=== PATIENT | male | born 1995 | race American Indian/Alaskan Native ===

== ENCOUNTER 2020-03-04 18:53 | Emergency (ER) | payer SELFPAY ==
[2020-03-04] MEDS ORDERED: DIPHtheria,PERTUSSIS(ACELL),TETANUS VACCINE/PF 0.5 ML VIAL IM ONE (20:01)
--- NOTE | 2020-03-04 20:01 | Event Note ---
ED Screening Note ED Screening Note: had a tattoo to the left side of the face a few months states he cut off the tattoo with a knife tonight denies any ETOH or drug use no SI or HI tdap: unsure pmhx none no allergies to meds This initial assessment/diagnostic orders/clinical plan/treatment(s) is/are subject to change based on patients health status, clinical progression and re- assessment by fellow clinical providers in the ED. Further treatment and workup at subsequent clinical providers discretion. Patient/guardian urged not to elope from the ED as their condition may be serious if not clinically assessed and managed. Initial orders include: ACC eval tdap
--- NOTE | 2020-03-04 21:43 | Emergency Department Report ---
ED General Adult HPI - General Chief complaint: Wound/Laceration Stated complaint: EAR LACERATION Time Seen by Provider: 03/04/20 19:57 Source: patient Mode of arrival: Ambulatory Limitations: No Limitations - History of Present Illness Initial comments: 25-year-old -[place] male patient presents with laceration to the left side of his face today. Patient states the laceration was self-inflicted and reports he was trying to cut a tattoo off his face. Patient states "I just did not want to tattoo on my face anymore". He states he received a tattoo about 3 months ago. He denies any drug use, SI/HI, or auditory/visual hallucinations. Patient states he is otherwise feeling well. No past mental health history per patient. He is unsure of his last tetanus vaccination. - Related Data Previous Rx's Medication Instructions Recorded Last Taken Type Ibuprofen [Motrin 800 MG tab] 800 mg PO Q8HR PRN 15 Days #14 03/04/20 Unknown Rx tablet Sulfamethoxazole/Trimethoprim 1 each PO BID 7 Days #14 tablet 03/04/20 Unknown Rx [Bactrim DS TAB] Allergies Allergy/AdvReac Type Severity Reaction Status Date / Time No Known Allergies Allergy Unverified 01/06/18 09:31 ED Review of Systems ROS: Stated complaint: EAR LACERATION Other details as noted in HPI Constitutional: denies: chills, fever, malaise Respiratory: denies: cough, shortness of breath Cardiovascular: denies: chest pain Gastrointestinal: denies: abdominal pain, nausea, vomiting Skin: as per HPI Neurological: denies: headache, paresthesias, confusion Psychiatric: denies: anxiety, depression, auditory hallucinations, visual hallucinations, suicidal thoughts ED Past Medical Hx - Past Medical History Previous Medical History?: No - Surgical History Past Surgical History?: No - Social History Smoking Status: Current Every Day Smoker Substance Use Type: None - Medications Home Medications: Home Medications Medication Instructions Recorded Confirmed Last Taken Type Ibuprofen [Motrin 800 MG tab] 800 mg PO Q8HR PRN 15 Days #14 03/04/20 Unknown Rx tablet Sulfamethoxazole/Trimethoprim 1 each PO BID 7 Days #14 tablet 03/04/20 Unknown Rx [Bactrim DS TAB] ED Physical Exam - General Limitations: No Limitations General appearance: alert, in no apparent distress - Head Head exam: Present: normocephalic - Eye Eye exam: Present: normal appearance. Absent: scleral icterus - Respiratory Respiratory exam: Present: normal lung sounds bilaterally. Absent: respiratory distress - Cardiovascular Cardiovascular Exam: Present: regular rate, normal rhythm - GI/Abdominal GI/Abdominal exam: Present: soft. Absent: tenderness - Neurological Exam Neurological exam: Present: alert, oriented X3 - Psychiatric Psychiatric exam: Present: normal affect, flat affect. Absent: depressed, agitated, manic, homicidal ideation, suicidal ideation - Skin Skin exam: Present: warm, dry, normal color. Absent: intact (Approximately 7 cm jagged laceration noted to the left side of face with minimal active bleeding; no obvious foreign bodies noted; no surrounding erythema or drainage noted), rash ED Course Vital Signs 03/04/20 03/04/20 03/04/20 19:52 21:37 22:16 Temperature 100.1 F H 99.5 F Pulse Rate 121 H 86 Respiratory 18 17 17 Rate Blood Pressure 145/77 Blood Pressure 121/73 [Left] O2 Sat by Pulse 97 99 Oximetry - Laceration /Wound Repair Left Face Wound Location: face Wound Length (cm): 7 Wound's Depth, Shape: linear Wound Explored: clean Irrigated w/ Saline (ccs): 40 Betadine Prep?: Yes Anesthesia: 1% Lidocaine Volume Anesthetic (ccs): 10 Wound Repaired With: sutures Suture Size/Type: 6:0, proline Number of Sutures: 28 (Continuous) Sterile Dressing Applied?: No Progress: Minimal bleeding occurred. Patient tolerated procedure well without any immediate complications. ED Medical Decision Making - Medical Decision Making 25-year-old -[place] male patient presents with laceration to the left side of his face today. Patient states the laceration was self-inflicted and reports he was trying to cut a tattoo off his face. He states he remove the tattoo with a patient states "I just did not want to tattoo on my face anymore". Patient states he removed the tattoo using a hair clipper. He states he received a tattoo about 3 months ago. He denies any drug use, SI/HI, or auditory/visual hallucinations. Patient states he is otherwise feeling well. No past mental health history per patient. He is unsure of his last tetanus vaccination. Laceration repair without any immediate complications. Tetanus vaccine updated. Patient instructed to return to ED in 10 days for suture removal. Discussed wound care and strict return precautions in detail with patient who verbalizes understanding. Patient states he is unable to afford prophylactic antibiotics therefore Bactrim was prescribed due to it being free at [facility]. Critical care attestation.: If time is entered above; I have spent that time in minutes in the direct care of this critically ill patient, excluding procedure time. ED Disposition Clinical Impression: Laceration of face Qualifiers: Encounter type: initial encounter Qualified Code(s): S01.81XA - Laceration without foreign body of other part of head, initial encounter Disposition: DC- TO HOME OR SELFCARE Is pt being admited?: No Condition: Stable Instructions: Sutured Wound Care, [id number] Additional Instructions: Return to the emergency department in 10 days on 03/14/2020 for suture removal. Prescriptions: Sulfamethoxazole/Trimethoprim [Bactrim DS TAB] 1 each PO BID 7 Days #14 tablet Ibuprofen [Motrin 800 MG tab] 800 mg PO Q8HR PRN 15 Days #14 tablet PRN Reason: pain Referrals: PRIMARY CARE, [Primary Care Provider] - 3-5 Days
[2020-03-04 22:19] VITALS: BP 121/73
== END 2020-03-04 22:15 | disposition home or self-care (01) ==
LOC: ED 18:53
DX: S01.81XA Laceration without foreign body of other part of head, initial encounter (principal); F17.200 Nicotine dependence, unspecified, uncomplicated; Z79.899 Other long term (current) drug therapy; W45.8XXA Other foreign body or object entering through skin, initial encounter; Y93.89 Activity, other specified; Y92.89 Other specified places as the place of occurrence of the external cause; Y99.8 Other external cause status
CPT/HCPCS: 90471; 90715

== ENCOUNTER 2020-03-14 13:33 | Emergency (ER) | payer SELFPAY ==
[2020-03-14 14:29] VITALS: BP 115/72
--- NOTE | 2020-03-14 14:58 | Emergency Department Report ---
Suture/Staple Removal - [facility] Chief Complaint: Laceration/Recheck/Suture Stated Complaint: LFT EAR STITCHS REMOVED Time Seen by Provider: 03/14/20 14:30 When Sutures or Hubert Placed: 8-10 Days Ago Wound Location: Laceration to left side of face in the preauricular region linear 6-0 Prole ED Review of Systems ROS: Stated complaint: LFT EAR STITCHS REMOVED Other details as noted in HPI Comment: All other systems reviewed and negative ED Past Medical Hx - Past Medical History Previous Medical History?: No - Surgical History Past Surgical History?: No - Social History Smoking Status: Current Every Day Smoker Substance Use Type: None - Medications Home Medications: Home Medications Medication Instructions Recorded Confirmed Last Taken Type Ibuprofen [Motrin 800 MG tab] 800 mg PO Q8HR PRN 15 Days #14 03/04/20 Unknown Rx tablet Sulfamethoxazole/Trimethoprim 1 each PO BID 7 Days #14 tablet 03/04/20 Unknown Rx [Bactrim DS TAB] Suture Removal Exam - Exam General: Vital signs noted. No distress. Alert and acting appropriately. Wound: No Pathologic Erythema, No Tenderness, No Drainage, No Pus, No Wound Dehiscence Other Systems: All other systems reviewed and are unremarkable. Excessive scabbing there is overgrowing the sutures with partial skin overgrowth to the 6-0 Prolene as well and about 4-5 areas. ED Course Vital Signs 03/14/20 14:29 Temperature 97.5 F L Pulse Rate 63 Respiratory 18 Rate Blood Pressure 115/72 [Right] O2 Sat by Pulse 100 Oximetry - Procedure Description Procedures done: Continue stitch was removed scab was removed skin was partially reopened so sutures could be removed as well the sutures were removed in their entirety with no significant complications no significant wound dehiscence Critical care attestation.: If time is entered above; I have spent that time in minutes in the direct care of this critically ill patient, excluding procedure time. ED Disposition Clinical Impression: Laceration of face Disposition: DC-01 TO HOME OR SELFCARE Is pt being admited?: No Does the pt Need Aspirin: No Condition: Stable Instructions: Laceration Care, Adult, Sutures, Hubert, or Adhesive Wound Closure, [id number] Referrals: [facility] [Provider Group] - 3-5 Days
== END 2020-03-14 15:15 | disposition home or self-care (01) ==
LOC: ED 13:33
DX: S01.81XA Laceration without foreign body of other part of head, initial encounter (principal); F17.200 Nicotine dependence, unspecified, uncomplicated; Z79.899 Other long term (current) drug therapy; X58.XXXA Exposure to other specified factors, initial encounter; Y93.89 Activity, other specified; Y92.89 Other specified places as the place of occurrence of the external cause; Y99.8 Other external cause status
CPT/HCPCS: 99282

== ENCOUNTER 2020-04-29 13:21 | Emergency (ER) | payer SELFPAY ==
[2020-04-29 13:42] VITALS: BP 143/91
== END 2020-04-29 16:55 | disposition left against medical advice (07) ==
LOC: ED 13:21
DX: Z00.8 Encounter for other general examination (principal); Z53.21 Procedure and treatment not carried out due to patient leaving prior to being seen by health care provider

== ENCOUNTER 2021-07-10 21:41 | Emergency (ER) | payer SELFPAY ==
--- NOTE | 2021-07-10 22:35 | Emergency Department Report ---
HPI - General Chief Complaint: Psych - HPI HPI: Room 12 The patient is a 26-year-old male present with chief complaint of auditory hallucinations. Patient states for years she has had auditory hallucinations but recently has had voices telling him to harm himself. When asked when was the last time he had auditory hallucination patient screams out "right now! Look its screaming!" Patient denies having thoughts of wanting to harm himself or anyone else. Patient states he was hospitalized at psych facility years ago for "depression." ED Past Medical Hx - Past Medical History Hx Psychiatric Treatment: Yes (Depression) - Surgical History Additional Surgical History: Circumcision - Family History Family history: no significant - Social History Smoking Status: Current Some Day Smoker (Cigar) Substance Use Type: Alcohol (three 24 ounce beers daily), Marijuana - Medications Home Medications: Home Medications Medication Instructions Recorded Confirmed Last Taken Type Ibuprofen [Motrin 800 MG tab] 800 mg PO Q8HR PRN 15 Days #14 03/04/20 Unknown Rx tablet Sulfamethoxazole/Trimethoprim 1 each PO BID 7 Days #14 tablet 03/04/20 Unknown Rx [Bactrim DS TAB] OLANzapine [ZyPREXA] 10 mg PO QHS 30 Days #30 tablet 07/12/21 Unknown Rx traZODone [Desyrel] 50 mg PO QHS 30 Days #30 tab 07/12/21 Unknown Rx ED Review of Systems ROS: Stated complaint: MENTAL HEALTH CONCERNS Other details as noted in HPI Constitutional: no symptoms reported Eyes: denies: eye pain ENT: denies: throat pain Respiratory: no symptoms reported Cardiovascular: denies: chest pain Endocrine: no symptoms reported Gastrointestinal: denies: abdominal pain Genitourinary: denies: dysuria Musculoskeletal: denies: back pain Psychiatric: auditory hallucinations. denies: homicidal thoughts, suicidal thoughts Physical Exam - Physical Exam Vital Signs: Vital Signs 07/10/21 07/10/21 07/10/21 21:44 22:26 22:28 Temperature 97.8 F 97.8 F Pulse Rate 107 H 90 Respiratory 18 16 Rate Blood Pressure 132/72 132/72 O2 Sat by Pulse 98 100 100 Oximetry Physical Exam: GENERAL: The patient is well-developed well-nourished male lying on chair not appearing to be in acute distress. [] HEENT: Normocephalic. Atraumatic. Extraocular motions are intact. Patient has moist mucous membranes. NECK: Supple. Trachea midline CHEST/LUNGS: Clear to auscultation. There is no respiratory distress noted. HEART/CARDIOVASCULAR: Regular. There is no tachycardia. There is no gallop rub or murmur. ABDOMEN: Abdomen is soft, nontender. Patient has normal bowel sounds. There is no abdominal distention. SKIN: There is no rash. There is no edema. There is no diaphoresis. NEURO: The patient is awake, alert, and oriented. The patient is cooperative. The patient has no focal neurologic deficits. The patient has normal speech. GCS 15 MUSCULOSKELETAL: There is no evidence of acute injury. ED Course Vital Signs 07/10/21 07/10/21 07/10/21 21:44 22:26 22:28 Temperature 97.8 F 97.8 F Pulse Rate 107 H 90 Respiratory 18 16 Rate Blood Pressure 132/72 132/72 O2 Sat by Pulse 98 100 100 Oximetry ED Medical Decision Making - Lab Data Result diagrams: 07/10/21 23:29 07/10/21 23:29 - Differential Diagnosis Psychosis NOS, schizophrenia Critical care attestation.: If time is entered above; I have spent that time in minutes in the direct care of this critically ill patient, excluding procedure time. ED Disposition Clinical Impression: Auditory hallucinations, Schizophrenia, Alcohol intoxication Disposition: 01 HOME / SELF CARE / HOMELESS Is pt being admited?: No Does the pt Need Aspirin: No Condition: Fair Instructions: Binge-Drinking Information, Adult, Schizophrenia Additional Instructions: Professional and Agency Contacts To help Res[facility] Crises(17/10) [place] Crisis Line: Suicide Prevention Line: Crisis Text Line: Text START to [phone] Emergency: 911 Outpatient COMMUNITY Behavioral Health Resources: [place]: [facility] [address], [place] [address] [place]: [address] [address] [place]: [facility] - [address] [place] [address] Monday thru Monday - 8am - 5pm [place]: [facility] Address: [address], [place] [address] [place]: [facility] Address: [address], [place], [place] Monday thru Monday- 7am-2pm [facility] Address: [address], [place], [place] Monday thru Monday: 8:30AM-5PM Prescriptions: traZODone [Desyrel] 50 mg PO QHS 30 Days #30 tab OLANzapine [ZyPREXA] 10 mg PO QHS 30 Days #30 tablet [facility] - 3-5 Days
[2021-07-10] MEDS ORDERED: HALOPERIDOL LACTATE 5 MG/1 ML INJ IM PRN (22:44)
[2021-07-10] MEDS ORDERED: LORazepam 2 MG/ML VIAL IM PRN (22:44)
[2021-07-10] MEDS ORDERED: diphenhydrAMINE 50 MG/ML VIAL IM PRN (22:44)
[2021-07-10 23:10] LABS: Amphetamine Screen,Urine PRESUMPTIVE NEGATIVE; Benzodiazepines Screen,Urine PRESUMPTIVE NEGATIVE; Cannabinoid Screen,Urine PRESUMPTIVE POSITIVE; Cocaine Screen,Urine PRESUMPTIVE NEGATIVE; Methadone Screen,Urine PRESUMPTIVE NEGATIVE; Opiate Screen,Urine PRESUMPTIVE NEGATIVE
[2021-07-10 23:19] LABS: Bilirubin,Urine NEG (Negative); Blood,Urine NEG (Negative); Color,Urine Colorless (Yellow); Protein,Urine <15 mg/dL mg/dL (Negative); Urobilinogen,Urine < 2.0 mg/dL (<2.0); WBC,Urine < 1.0 /HPF (0.0-6.0)
[2021-07-11 00:03] LABS: Basophils % (Auto) 0.6 % (0.0-1.8); Eosinophils % (Auto) 0.7 % (0.0-4.3); Hemoglobin 13.7 gm/dl (11.8-15.2); Lymphocytes # (Auto) 1.9 K/mm3 (1.2-5.4); Lymphocytes % (Auto) 31.1 % (13.4-35.0); Mean Corpuscular HGB Conc 33 % (32-34); Mean Corpuscular Volume 89 fl (84-94); Monocytes # (Auto) 0.5 K/mm3 (0.0-0.8); Platelet Count 132 K/mm3 (140-440); Red Blood Count 4.59 M/mm3 (3.65-5.03)
[2021-07-11 00:09] LABS: BUN/Creatinine Ratio 9; Blood Urea Nitrogen 7 mg/dL (9-20); Calcium 8.1 mg/dL (8.4-10.2); Hemolysis Index 6
--- NOTE | 2021-07-11 09:20 | Consultation ---
History of Present Illness - Reason for Consult Consult date: 07/11/21 Reason for consult: hallucinations - History of Present Psychiatric Illness The patient is a 26 year old male with unknown psychiatric diagnosis. In my encounter with the patient, he seems angry, his speech varying from normal to very loud. The patient states that he has been hearing voices for about 6 years but has worsened in last 1 year. The patient is unable to recall prior psychotropic medications he has tried. He denies any current suicidal/homicidal ideation and reports non-commanding auditory hallucinations. PAST PSYCHIATRIC HISTORY Diagnoses: Denies Suicide attempts or Self-harm behavior: Denies Prior psychiatric hospitalizations: yes Substance Abuse history: "[place]" Previous psychiatric medications tried: Unable to recall Outpatient treatment: Unknown PAST MEDICAL HISTORY: unknown Family Psychiatric History: unknown SOCIAL HISTORY Marital Status: Single Living Arrangements: Lives alone Employment Status: Unemployed Access to guns/weapons: None reported Education: 12th grade History of Abuse: None reported Legal History: None reported REVIEW OF SYSTEMS Constitutional: Negative for weight loss ENT: Negative for stridor Respiratory: Negative for cough or hemoptysis All other systems reviewed and are negative MENTAL STATUS EXAMINATION General Appearance and Behavior: Age appropriate, good hygiene, wearing appropriate clothes, fair eye contact, cooperative Cooperation: cooperative Mood: angry Affect and affective range: congruent with mood Thought Process:Circumstantial Thought Content: Hallucinations Speech:loud Suicidal Ideation: Denies Homicidal Ideation: Denies Hallucinations:Auditory Delusions: None Impulse Control: Limited Insight and Judgment: Limited insight and judgment, Memory: Normal Attention: Normal Orientation: Alert, oriented Assessment and Plan (1) Schizophrenia Treatment Plan Zyprexa 5mg po BID Trazodone 50mg po QHS Sitter: refer to medical Medical: per primary Disposition:Recommend acute psychiatric inpatient treatment. Will follow. Thanks Case staffed with Dr. Muhammad Medications and Allergies Medications and Allergies Allergies Allergy/AdvReac Type Severity Reaction Status Date / Time No Known Allergies Allergy Verified 07/10/21 22:25 Home Medications Medication Instructions Recorded Confirmed Last Taken Type Ibuprofen [Motrin 800 MG tab] 800 mg PO Q8HR PRN 15 Days #14 03/04/20 Unknown Rx tablet Sulfamethoxazole/Trimethoprim 1 each PO BID 7 Days #14 tablet 03/04/20 Unknown Rx [Bactrim DS TAB] Active Meds: Active Medications Diphenhydramine HCl (Diphenhydramine 50 Mg/Ml Vial) 50 mg IM Q6H PRN PRN Reason: Agitation Last Admin: 07/10/21 22:54 Dose: 50 mg Haloperidol Lactate (Haloperidol Lactate 5 Mg/1 Ml Inj) 10 mg IM Q8H PRN PRN Reason: Agitation Last Admin: 07/10/21 22:54 Dose: 10 mg Lorazepam (Lorazepam 2 Mg/Ml Vial) 2 mg IM Q8H PRN PRN Reason: Agitation Last Admin: 07/10/21 22:54 Dose: 2 mg Mental Status Exam - Vital signs Last Vital Signs Temp 98.5 F 07/11/21 08:12 Pulse 85 07/11/21 08:12 Resp 18 07/11/21 08:12 BP 102/65 07/11/21 08:12 Pulse Ox 100 07/11/21 08:13 Results Result Diagrams: 07/10/21 23:29 07/10/21 23:29 Abnormal lab results 07/10/21 07/10/21 07/10/21 Range/Units 22:41 23:29 23:29 Plt Count (140-440) K/mm3 [place] % (Auto) (0.0-7.3) % BUN (9-20) mg/dL Calcium (8.4-10.2) mg/dL Ur Specific [place] 1.001 L (1.003-1.030) Salicylates < 0.3 L (2.8-20.0) mg/dL Acetaminophen 5.0 L (10.0-30.0) ug/mL Plasma/Serum Alcohol (0-0.07) % 07/10/21 07/10/21 07/10/21 Range/Units 23:29 23:29 23:29 Plt Count 132 L (140-440) K/mm3 [place] % (Auto) 8.0 H (0.0-7.3) % BUN 7 L (9-20) mg/dL Calcium 8.1 L (8.4-10.2) mg/dL Ur Specific [place] (1.003-1.030) Salicylates (2.8-20.0) mg/dL Acetaminophen (10.0-30.0) ug/mL Plasma/Serum Alcohol 0.24 H (0-0.07) % All other labs normal.
--- NOTE | 2021-07-11 12:20 | Event Note ---
Date: 07/11/21 The patient was evaluated in the emergency department for symptoms described in the history of present illness. He/she was evaluated in the context of the global COVID-19 pandemic, which necessitated consideration that the patient might be at risk for infection with the virus that causes COVID-19. Institutional protocols and algorithms that pertain to the evaluation of patients at risk for COVID-19 are in a state of rapid change based on information released by regulatory bodies including the CDC and federal and state organizations. These policies and algorithms were followed during the patient's care in the emergency department. Please note that these policies, procedures and recommendations changed on a rapid basis. Laboratory studies, vital signs, nursing documentation, ER documentation, and psychiatric documentation are reviewed and appreciated. Nursing team reports no acute events this morning or concerns. The patient is awake and ambulating and does not appear to be in any acute distress The patient was deemed medically suitable for psychiatric disposition and placement during his initial ER evaluation. The patient continues to remain medically suitable for psychiatric placement and disposition. He is currently pending psychiatric placement. Vital Signs 07/10/21 07/10/21 07/10/21 21:44 22:26 22:28 Temperature 97.8 F 97.8 F Pulse Rate 107 H 90 Respiratory 18 16 Rate Blood Pressure 132/72 132/72 Blood Pressure [Left] O2 Sat by Pulse 98 100 100 Oximetry 07/10/21 07/11/21 07/11/21 22:40 08:12 08:13 Temperature 98.2 F 98.5 F Pulse Rate 90 85 Respiratory 16 18 Rate Blood Pressure Blood Pressure 125/82 102/65 [Left] O2 Sat by Pulse 99 100 100 Oximetry Lab Results 07/10/21 07/10/21 07/10/21 Range/Units 22:41 22:41 23:29 WBC (4.5-11.0) K/mm3 RBC (3.65-5.03) M/mm3 Hgb (11.8-15.2) gm/dl Hct (35.5-45.6) % MCV (84-94) fl MCH (28-32) pg MCHC (32-34) % RDW (13.2-15.2) % Plt Count (140-440) K/mm3 Lymph % (Auto) (13.4-35.0) % [place] % (Auto) (0.0-7.3) % Eos % (Auto) (0.0-4.3) % Baso % (Auto) (0.0-1.8) % Lymph # (Auto) (1.2-5.4) K/mm3 [place] # (Auto) (0.0-0.8) K/mm3 Eos # (Auto) (0.0-0.4) K/mm3 Baso # (Auto) (0.0-0.1) K/mm3 Seg Neutrophils % (40.0-70.0) % Seg Neutrophils # (1.8-7.7) K/mm3 Sodium (137-145) mmol/L Potassium (3.6-5.0) mmol/L Chloride (98-107) mmol/L Carbon Dioxide (22-30) mmol/L Anion Gap mmol/L BUN (9-20) mg/dL Creatinine (0.8-1.3) mg/dL Estimated GFR ml/min BUN/Creatinine Ratio % Glucose (75-100) mg/dL Calcium (8.4-10.2) mg/dL Urine Color Colorless (Yellow) Urine Turbidity Clear (Clear) Urine pH 6.0 (5.0-7.0) Ur Specific [place] 1.001 L (1.003-1.030) Urine Protein <15 mg/dl (Negative) mg/dL Urine Glucose (UA) Neg (Negative) mg/dL Urine Ketones Neg (Negative) mg/dL Urine Blood Neg (Negative) Urine Nitrite Neg (Negative) Urine Bilirubin Neg (Negative) Urine Urobilinogen < 2.0 (<2.0) mg/dL Ur Leukocyte Esterase Neg (Negative) Urine WBC (Auto) < 1.0 (0.0-6.0) /HPF Urine RBC (Auto) 1.0 (0.0-6.0) /HPF Urine Yeast (Budding) Few /HPF Salicylates < 0.3 L (2.8-20.0) mg/dL Urine Opiates Screen Presumptive negative Urine Methadone Screen Presumptive negative Acetaminophen (10.0-30.0) ug/mL Ur Barbiturates Screen Presumptive negative Ur Phencyclidine Scrn Presumptive negative Ur Amphetamines Screen Presumptive negative U Benzodiazepines Scrn Presumptive negative Urine Cocaine Screen Presumptive negative U Marijuana (THC) Screen Presumptive positive Drugs of Abuse Note Disclamer Plasma/Serum Alcohol (0-0.07) % SARS-CoV-2 (PCR) (Negative) 07/10/21 07/10/21 07/10/21 Range/Units 23:29 23:29 23:29 WBC (4.5-11.0) K/mm3 RBC (3.65-5.03) M/mm3 Hgb (11.8-15.2) gm/dl Hct (35.5-45.6) % MCV (84-94) fl MCH (28-32) pg MCHC (32-34) % RDW (13.2-15.2) % Plt Count (140-440) K/mm3 Lymph % (Auto) (13.4-35.0) % [place] % (Auto) (0.0-7.3) % Eos % (Auto) (0.0-4.3) % Baso % (Auto) (0.0-1.8) % Lymph # (Auto) (1.2-5.4) K/mm3 [place] # (Auto) (0.0-0.8) K/mm3 Eos # (Auto) (0.0-0.4) K/mm3 Baso # (Auto) (0.0-0.1) K/mm3 Seg Neutrophils % (40.0-70.0) % Seg Neutrophils # (1.8-7.7) K/mm3 Sodium 143 (137-145) mmol/L Potassium 3.7 (3.6-5.0) mmol/L Chloride 104.8 (98-107) mmol/L Carbon Dioxide 24 (22-30) mmol/L Anion Gap 18 mmol/L BUN 7 L (9-20) mg/dL Creatinine 0.8 (0.8-1.3) mg/dL Estimated GFR > 60 ml/min BUN/Creatinine Ratio 9 % Glucose 93 (75-100) mg/dL Calcium 8.1 L (8.4-10.2) mg/dL Urine Color (Yellow) Urine Turbidity (Clear) Urine pH (5.0-7.0) Ur Specific [place] (1.003-1.030) Urine Protein (Negative) mg/dL Urine Glucose (UA) (Negative) mg/dL Urine Ketones (Negative) mg/dL Urine Blood (Negative) Urine Nitrite (Negative) Urine Bilirubin (Negative) Urine Urobilinogen (<2.0) mg/dL Ur Leukocyte Esterase (Negative) Urine WBC (Auto) (0.0-6.0) /HPF Urine RBC (Auto) (0.0-6.0) /HPF Urine Yeast (Budding) /HPF Salicylates (2.8-20.0) mg/dL Urine Opiates Screen Urine Methadone Screen Acetaminophen 5.0 L (10.0-30.0) ug/mL Ur Barbiturates Screen Ur Phencyclidine Scrn Ur Amphetamines Screen U Benzodiazepines Scrn Urine Cocaine Screen U Marijuana (THC) Screen Drugs of Abuse Note Plasma/Serum Alcohol 0.24 H (0-0.07) % SARS-CoV-2 (PCR) (Negative) 07/10/21 07/11/21 Range/Units 23:29 10:04 WBC 6.1 (4.5-11.0) K/mm3 RBC 4.59 (3.65-5.03) M/mm3 Hgb 13.7 (11.8-15.2) gm/dl Hct 41.0 (35.5-45.6) % MCV 89 (84-94) fl MCH 30 (28-32) pg MCHC 33 (32-34) % RDW 15.0 (13.2-15.2) % Plt Count 132 L (140-440) K/mm3 Lymph % (Auto) 31.1 (13.4-35.0) % [place] % (Auto) 8.0 H (0.0-7.3) % Eos % (Auto) 0.7 (0.0-4.3) % Baso % (Auto) 0.6 (0.0-1.8) % Lymph # (Auto) 1.9 (1.2-5.4) K/mm3 [place] # (Auto) 0.5 (0.0-0.8) K/mm3 Eos # (Auto) 0.0 (0.0-0.4) K/mm3 Baso # (Auto) 0.0 (0.0-0.1) K/mm3 Seg Neutrophils % 59.6 (40.0-70.0) % Seg Neutrophils # 3.6 (1.8-7.7) K/mm3 Sodium (137-145) mmol/L Potassium (3.6-5.0) mmol/L Chloride (98-107) mmol/L Carbon Dioxide (22-30) mmol/L Anion Gap mmol/L BUN (9-20) mg/dL Creatinine (0.8-1.3) mg/dL Estimated GFR ml/min BUN/Creatinine Ratio % Glucose (75-100) mg/dL Calcium (8.4-10.2) mg/dL Urine Color (Yellow) Urine Turbidity (Clear) Urine pH (5.0-7.0) Ur Specific [place] (1.003-1.030) Urine Protein (Negative) mg/dL Urine Glucose (UA) (Negative) mg/dL Urine Ketones (Negative) mg/dL Urine Blood (Negative) Urine Nitrite (Negative) Urine Bilirubin (Negative) Urine Urobilinogen (<2.0) mg/dL Ur Leukocyte Esterase (Negative) Urine WBC (Auto) (0.0-6.0) /HPF Urine RBC (Auto) (0.0-6.0) /HPF Urine Yeast (Budding) /HPF Salicylates (2.8-20.0) mg/dL Urine Opiates Screen Urine Methadone Screen Acetaminophen (10.0-30.0) ug/mL Ur Barbiturates Screen Ur Phencyclidine Scrn Ur Amphetamines Screen U Benzodiazepines Scrn Urine Cocaine Screen U Marijuana (THC) Screen Drugs of Abuse Note Plasma/Serum Alcohol (0-0.07) % SARS-CoV-2 (PCR) Negative (Negative)
[2021-07-11] MEDS ORDERED: traZODone 50 MG TAB PO SCH (22:00)
--- NOTE | 2021-07-12 09:03 | Progress Note ---
Subjective - Reason for Consult Consult date: 07/12/21 Reason for consult: Mental health evaluation - Chief Complaint Chief complaint: REVIEW OF SYSTEMS Constitutional: Negative for weight loss ENT: Negative for stridor Respiratory: Negative for cough or hemoptysis All other systems reviewed and are negative MENTAL STATUS EXAMINATION General Appearance and Behavior: Age appropriate, good hygiene, wearing appropriate clothes, fair eye contact, cooperative Cooperation: cooperative Mood: calm Affect and affective range: congruent with mood Thought Process:Goal directed Thought Content:Reality oriented Speech:Normal Suicidal Ideation: Denies Homicidal Ideation: Denies Hallucinations:Denies Delusions: None Impulse Control: Limited Insight and Judgment: Limited insight and judgment, Memory: Normal Attention: Normal Orientation: Alert, oriented Assessment and Plan (1) Schizophrenia Treatment Plan DC 1013 Continue Zyprexa 10mg po qhs Continue 50mg po QHS Sitter: refer to medical Medical: per primary Disposition:Do not recommend acute psychiatric inpatient treatment. Slasher Operator will provide patient with psychiatric out patient resources. Will sign off. Thanks Case staffed with Dr. Muhammad Medications and Allergies Medications and Allergies Mental Status Exam - Vital signs Last Vital Signs Temp 98.4 F 07/12/21 02:37 Pulse 55 L 07/12/21 02:37 Resp 16 07/12/21 02:37 BP 102/71 07/12/21 02:37 Pulse Ox 100 07/12/21 08:09
--- NOTE | 2021-07-12 11:52 | Emergency Department Report ---
Blank Doc - Documentation Documentation: 26-year male with schizophrenia presents to the hospital with psychosis. Calli ent has been receiving p.o. psychiatric medication during ED stay. After mental health evaluation this morning patient was deemed stable for discharge with outpatient follow-up with psychiatric meds.
[2021-07-12 15:11] VITALS: BP 122/73
== END 2021-07-12 12:00 | disposition home or self-care (01) ==
LOC: ED 21:41
DX: F20.9 Schizophrenia, unspecified (principal); F10.129 Alcohol abuse with intoxication, unspecified; F32.9 Major depressive disorder, single episode, unspecified; Z20.822 Contact with and (suspected) exposure to COVID-19; F17.200 Nicotine dependence, unspecified, uncomplicated; F12.90 Cannabis use, unspecified, uncomplicated; Z79.899 Other long term (current) drug therapy; Y90.9 Presence of alcohol in blood, level not specified
CPT/HCPCS: 36415; 80048; 80307; 81001; 85025; 96372; 99284; J1200; J1630; J2060; U0003; 80320; G0480